=== PATIENT | female | born 1960 | race American Indian/Alaskan Native ===

== ENCOUNTER → 2017-03-28 | Outpatient (CLI) | payer OTHER ==
[~2017-03-28] MED LIST: CETI10TA18 PO; GEMF600T3 PO; HYDR-3307 PO; INSU100C5 SQ-INSULIN; LIPA1CAP45 PO; LISI5TAB7 PO; METO10TA82 PO; METO25TA35 PO; OMNIPAQUE 350 MG/ML, 100ML BOTTLE ONE; ONDA8TAB9 PO; TRAZ100T15 PO; [UNRECOGNIZED DRUG - CODE] TP
== END | disposition home or self-care (01) ==
LOC: CFH 13:30
PROVIDERS: ATTEND Specialist
DX: K86.89 Other specified diseases of pancreas (principal); Z90.49 Acquired absence of other specified parts of digestive tract; K57.30 Diverticulosis of large intestine without perforation or abscess without bleeding
CPT/HCPCS: 74177; Q9967

== ENCOUNTER → 2018-08-28 | Outpatient (CLI) | payer BC ==
[~2018-08-28] MED LIST changes: +BIOT25005 PO; +CHOL200024 PO; +GABA400C PO; -GEMF600T3 PO; +GEMF600T8 PO; +HYDR-3241 PO; +INSU100I13 SC; +MELO15TA24 PO; -OMNIPAQUE 350 MG/ML, 100ML BOTTLE ONE; +RANI150T4 PO; +TRAZ-137 PO; -TRAZ100T15 PO
[2018-08-28 12:00] LABS: BASOPHILS # (AUTO) 0.01 x10^3/uL (0-0.1); BASOPHILS % (AUTO) 0 % (0-1); EOSINOPHILS # (AUTO) 0.07 x10^3/uL (0-0.4); EOSINOPHILS % (AUTO) 2 % (1-7); LYMPHOCYTES % (AUTO) 38 % (22-44); MD NO; MEAN CORPUSCULAR HEMOGLOBIN 29.1 pg (27.0-34.8); MEAN CORPUSCULAR HGB CONC 34.3 g/dL (32.4-35.8); MEAN CORPUSCULAR VOLUME 84.8 fL (80-100); MEAN PLATELET VOLUME 8.6 fL (7.4-10.4); MONOCYTES # (AUTO) 0.21 x10^3/uL (0.2-0.8); MONOCYTES % (AUTO) 5 % (2-9); NEUTROPHILS % (AUTO) 55 % (42-75); PLATELET COUNT 218 x10^3/uL (130-400); RED BLOOD COUNT 4.74 x10^6/uL (3.82-5.3); RED CELL DISTRIBUTION WIDTH 13.2 % (9.6-15.2)
[2018-08-28 12:10] LABS: ALANINE AMINOTRANSFERASE 25 U/L (12-78); ALBUMIN 4.3 g/dL (3.4-5.0); ANION GAP 7 mmol/L (5-15); CALCIUM 9.4 mg/dL (8.5-10.1); CHLORIDE 99 mmol/L (98-107); CREATININE 1.14 mg/dL (0.55-1.02)
[2018-08-28 12:14] LABS: ALKALINE PHOSPHATASE 126 U/L (45-117); BILIRUBIN,TOTAL 0.7 mg/dL (0.2-1.0); TOTAL PROTEIN 7.4 g/dL (6.4-8.2)
== END | disposition home or self-care (01) ==
LOC: STAR 10:51
PROVIDERS: ATTEND Internal Medicine
DX: Z01.818 Encounter for other preprocedural examination (principal); Z88.0 Allergy status to penicillin; Z88.1 Allergy status to other antibiotic agents
CPT/HCPCS: 36415; 80053; 82378; 83036; 85025; 86301; 93005

== ENCOUNTER 2018-09-01 05:40 | Day surgery (SDC) | payer BC ==
[~2018-09-01] VITALS: Ht 160 cm; Wt 54.0 kg
[2018-09-01] MEDS ORDERED: LACTATED RINGERS 1,000 ML IV SCH (06:09)
[2018-09-01 06:20] VITALS: BP 129/82
[2018-09-01] MEDS ORDERED: PROPOFOL 10 MG/ML, 20ML ONE (07:46)
[2018-09-01] MEDS ORDERED: LIDOCAINE-MPF 2% ,5ML ONE ×2 (07:46→08:20)
[2018-09-01] MEDS ORDERED: PROMETHAZINE 25 MG SUPP PR PRN (08:00)
[2018-09-01] MEDS ORDERED: ONDANSETRON ODT 8 MG PO PRN (08:00)
[2018-09-01] MEDS ORDERED: OXYcodone 5 MG/5 ML ORAL.SOL UDC PO PRN (08:00)
[2018-09-01] MEDS ORDERED: ONDANSETRON 2MG/ML, 2ML IV PRN (08:00)
[2018-09-01] MEDS ORDERED: PROMETHAZINE 25 MG/ML, 1ML IV PRN (08:00)
[2018-09-01] MEDS ORDERED: ACETAMINOPHEN 325 MG TABLET PO PRN (08:00)
[2018-09-01] MEDS ORDERED: PROPOFOL 50 ML ONE (08:20)
[2018-09-01] MEDS ORDERED: MIDAZOLAM 1 MG/ML, 2ML ONE (09:04)
[2018-09-01] MEDS ORDERED: OXYcodone 5 MG/5 ML ORAL.SOL UDC ONE ×2 (09:08→09:10)
[2018-09-01] MEDS ORDERED: FENTANYL PF 100 MCG/2ML ONE (09:08)
[2018-09-01] MEDS: FENTANYL PF 100 MCG/2ML IV PRN ×2 (09:09→09:16)
== END 2018-09-01 10:50 | disposition home or self-care (01) ==
LOC: OUT 05:40
PROVIDERS: ATTEND Internal Medicine
DX: K86.0 Alcohol-induced chronic pancreatitis (principal); E11.9 Type 2 diabetes mellitus without complications; R63.4 Abnormal weight loss; Z68.21 Body mass index [BMI] 21.0-21.9, adult; Z88.0 Allergy status to penicillin; Z88.1 Allergy status to other antibiotic agents; Z90.710 Acquired absence of both cervix and uterus; Z98.890 Other specified postprocedural states; Z90.49 Acquired absence of other specified parts of digestive tract; Z79.84 Long term (current) use of oral hypoglycemic drugs; Z83.3 Family history of diabetes mellitus; Z80.9 Family history of malignant neoplasm, unspecified; Z82.49 Family history of ischemic heart disease and other diseases of the circulatory system; Z79.899 Other long term (current) drug therapy
CPT/HCPCS: 43242; 82962; J2250; J2704; J3010; J7120